=== PATIENT | male | born 1940 | race Caucasian/White ===

== ENCOUNTER → 2018-07-19 | Outpatient (CLI) | payer MEDICARE ==
[~2018-07-19] MED LIST: AMLODIPINE5 MG PO; COREG25 MG PO; CRESTOR10 MG PO; DIOVAN320 MG PO; MELOXICAM15 MG PO; METFORMIN500 MG PO; PYRIDIUM200 MG PO
== END | disposition home or self-care (01) ==
LOC: CT 13:25
DX: G93.89 Other specified disorders of brain (principal); R41.82 Altered mental status, unspecified; F02.80 Dementia in other diseases classified elsewhere, unspecified severity, without behavioral disturbance, psychotic disturbance, mood disturbance, and anxiety; R29.810 Facial weakness